=== PATIENT | male | born 1935 | race Caucasian/White ===

== ENCOUNTER 2016-08-18 06:33 | Day surgery (SDC) | payer OTHER ==
[2016-08-14 11:38] VITALS: BMI 30.7
[2016-08-18] MEDS ORDERED: BUPIVACAINE HCL/PF 0.5% (5MG/ML) 10 ML VIAL ONE (07:13)
[2016-08-18] MEDS ORDERED: LIDOCAINE 1%/EPI 1:100000 (20 ML MULTI DOSE VIAL) ONE (07:13)
[2016-08-18] MEDS ORDERED: BACITRACIN 3.5 GM OPTHALMIC OINT TUBE ONE (07:13)
[2016-08-18] MEDS ORDERED: TETRACAINE 0.5% OPHTH SOLN 2 ML BOTTLE ONE (07:13)
[2016-08-18] MEDS ORDERED: POVIDONE-IODINE 5% OPHTHALMIC PREP 30 ML SOLUTION ONE (07:15)
[2016-08-18] MEDS ORDERED: MIDAZOLAM HCL 2 MG/2 ML SINGLE DOSE VIAL ONE (07:27)
[2016-08-18] MEDS ORDERED: PROPOFOL 20 ML ONE ×2 (07:27)
[2016-08-18] MEDS ORDERED: SUCCINYLCHOLINE CHLORIDE 200 MG/10 ML VIAL ONE (07:27)
[2016-08-18] MEDS ORDERED: CLINDAMYCIN PHOSPHATE 600 MG/4 ML VIAL ONE (08:14)
[2016-08-18] MEDS ORDERED: ONDANSETRON 4 MG/2 ML VIAL ONE (09:01)
[2016-08-18] MEDS ORDERED: ACETAMINOPHEN 500 MG TABLET (FP) PO PRN (10:11)
[2016-08-18] MEDS ORDERED: ACETAMINOPHEN 325 MG TABLET (FP) ONE (10:12)
[2016-08-18] MEDS ORDERED: LACTATED RINGERS SOLUTION 1,000 ML IV SCH (10:15)
[2016-08-18] MEDS ORDERED: ONDANSETRON 4 MG/2 ML VIAL IVPUSH PRN (13:25)
[2016-08-18] MEDS ORDERED: oxyCODONE HCL 5 MG TABLET PO PRN (13:26)
[2016-08-18 13:34] VITALS: BP 110/67; PULSE 52; TEMP 98
--- NOTE | 2016-08-19 00:24 | OP ---
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 PROCEDURE: 1. Levator advancement, right upper lid. 2. Levator advancement, left upper lid. 3. Functional blepharoplasty, bilateral upper lids. SURGEON: Brad Shafer MD ANESTHESIA: Local sedation. COMPLICATIONS: None. ESTIMATED BLOOD LOSS: 2-3 mL DESCRIPTION OF PROCEDURE: Patient brought to the operating room and placed on the operating room table. Vital signs monitored by Anesthesia. Tetracaine was placed in both eyes. The creases were marked symmetrically approximately 10 mm above the lash line near the patient's [place] lid crease, and then, a conservative amount of skin that could be removed in order to remove the excess skin that would be interfering with vision was marked in an elliptical fashion in both eyes. The patient was given intravenous sedation. Timeout was performed. A subcutaneous injection of 2% xylocaine and 1:100,000 epinephrine was injected for a total of slightly less than 1 mL in each eyelid. Patient was prepped and draped in the usual sterile fashion, exposing both eyes, and the following procedure was performed bilaterally. Lid crease was incised, as was the elliptical excision lines. Skin was then dissected off with a Wilbarger needle and removed from the field, and hemostasis was achieved with a Wilbarger needle. Dissection was carried through the orbicularis layer to the septum. The septum was widely opened, exposing the preaponeurotic fat which was retracted, exposing dehisced levator or rarified levator aponeurosis bilaterally. Sub orbicularis plane was dissected, freely exposing the tarsus, and then, the levator was reattached with 2 partial-thickness 6-0 Vicryl mattress sutures for partial-thickness tarsus, and these were adjusted with the patient in the upright position until a reasonable lid height and contour was obtained. The sutures were then tied. Antibiotic irrigation was performed. Due to the excessive bulk of the fat in this patient which would be weighing down the eyelids, the preaponeurotic fat and the nasal side pockets which were enormous were sculpted in order to relieve the bulk of the eyelid, completing the blepharoplasty part of the surgery. Hemostasis was then evidenced. Antibiotic irrigation was performed, and the wounds were closed with running and interrupted 6-0 plain suture bilaterally. Bacitracin was placed on the eyes. Lids were everted, demonstrating no posterior pinch. The patient was sutured, and the patient was taken to recovery room in stable condition. BRAD SHAFER M.D. ASHLEY/[id number]
--- NOTE | 2016-08-21 14:06 | PATH ---
Surgical Pathology Report Patient Name: BRADY FIERRO [facility]. Rec. #: [id number] /Age/Gender: 1935 (Age: 81) / M Account: [id number] Location: [facility] AMBUL[facility]ORY Taken: 08/19/2016 Received: 08/19/2016 Reported: 08/21/2016 Physicians: Toby Bustillo Specimen(s) Received SKIN AND FAT BILATERAL UPPER EYELID Clinical History Bilateral upper eyelid ptosis Final Diagnosis SKIN AND SOFT TISSUE, BILATERAL UPPER EYELID, EXCISION: UNREMARKABLE SKIN AND BENIGN ADIPOSE TISSUE. Electronically Signed Devan Ochoa M.D. Gross Description Received in formalin labeled "skin and fat bilateral upper eyelid," are 2 stokes skin shavings measuring 3.5 x 0.5 cm and 4.2 x 0.5 cm. Also received within the same container is a 2.3 x 1.7 x 0.4 cm aggregate of yellow, lobulated fragments of adipose tissue. Weights And Measures Inspector sections are submitted in one cassette. 08/20/2016 [facility]08/20/2016
== END 2016-08-18 12:35 | disposition home or self-care (01) ==
LOC: FASU 06:33
PROVIDERS: ATTEND Ophthalmology
PROC: 08SN0ZZ Reposition Right Upper Eyelid, Open Approach (ICD-10-PCS; 2016-08-18)
PROC: 08SP0ZZ Reposition Left Upper Eyelid, Open Approach (ICD-10-PCS; principal; 2016-08-18 08:30)
DX: H02.403 Unspecified ptosis of bilateral eyelids (principal)
CPT/HCPCS: 88302-TC; 94760